=== PATIENT | male | born 1980 | race Caucasian/White ===

== ENCOUNTER 2016-05-29 08:04 | Day surgery (SDC) | payer OTHER ==
[~2016-05-29] VITALS: Ht 185.4 cm; Wt 83.9 kg
[~2016-05-29 08:04] MED LIST: CIALIS20 MG PO
[2016-05-29 08:49] VITALS: BP 126/76
[2016-05-29] MEDS ORDERED: PERCOCET 5/31 TABLET PO (12:01)
[2016-05-29] MEDS ORDERED: COLACE100 MG PO (12:01)
[2016-05-29 13:30] VITALS: BP 145/94
[2016-05-29 14:26] VITALS: BP 143/90
== END 2016-05-29 14:33 | disposition home or self-care (01) ==
LOC: SDC 08:04
PROC: 0YUA4JZ Supplement Bilateral Inguinal Region with Synthetic Substitute, Percutaneous Endoscopic Approach (ICD-10-PCS; principal; 2016-05-29)
DX: K40.20 Bilateral inguinal hernia, without obstruction or gangrene, not specified as recurrent (principal); K41.90 Unilateral femoral hernia, without obstruction or gangrene, not specified as recurrent; J45.909 Unspecified asthma, uncomplicated; E78.1 Pure hyperglyceridemia; R73.09 Other abnormal glucose; L40.9 Psoriasis, unspecified; Z82.49 Family history of ischemic heart disease and other diseases of the circulatory system; Z83.3 Family history of diabetes mellitus; F17.200 Nicotine dependence, unspecified, uncomplicated; Z88.8 Allergy status to other drugs, medicaments and biological substances
CPT/HCPCS: C1727; C1781; J0330; J0690; J1100; J1170; J2250; J2405; J2710; J3010